=== PATIENT | male | born 1950 | race Caucasian/White ===

== ENCOUNTER → 2018-11-07 | Outpatient (CLI) | payer OTHER ==
[~2018-11-07] MED LIST: ATENOLOL25 MG; COUGH SYRU100 MG/5 M PO; PRELONE15 MG/5 ML PO
== END | disposition home or self-care (01) ==
LOC: NUCLEAR 11-06 08:30
DX: C15.3 Malignant neoplasm of upper third of esophagus (principal)
CPT/HCPCS: 78815; A9552

== ENCOUNTER 2019-01-22 12:23 | Outpatient (CLI) | payer OTHER | END 2019-01-22 12:29 | disposition home or self-care (01) | LOC: LAB 12:23 | DX: N20.0 Calculus of kidney (principal); Z51.81 Encounter for therapeutic drug level monitoring ==

== ENCOUNTER 2019-01-22 13:16 | Outpatient (CLI) | payer OTHER | END 2019-01-22 13:24 | disposition home or self-care (01) | LOC: MRI 13:16 | DX: M54.5 Low back pain (principal); F17.200 Nicotine dependence, unspecified, uncomplicated | CPT/HCPCS: 72157; 72158; A9575; 72147; 72149 ==